=== PATIENT | male | born 1965 | race Caucasian/White ===

== ENCOUNTER → 2021-05-19 11:59 | Outpatient (BNVA) | payer SELFPAY | PROVIDERS: Visit Provider Nurse Practitioner Family | DX: J06.9 Acute upper respiratory infection, unspecified (principal); Z20.822 Contact with and (suspected) exposure to COVID-19 | CPT/HCPCS: 87635 ==

== ENCOUNTER 2023-01-10 20:48 | Emergency (ER) | payer OTHER, SELFPAY ==
[2023-01-10 20:50] VITALS: BP 178/123; PULSE 99; TEMP 36.9; O2SAT 98; BMI 24.3
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
[2023-01-10 21:29] VITALS: BP 185/125; PULSE 90; O2SAT 96
[2023-01-10 23:03] VITALS: PULSE 82; RESP 18; O2SAT 96
--- NOTE | 2023-01-14 10:40 | DCPLANNER ---
manager of training called patient due to no primary care physician - patient stated that he sees a physician at the [place] [facility] in [place].
== END 2023-01-10 22:48 | disposition home or self-care (01) ==
PROVIDERS: Emergency Provider Emergency Medicine
DX: S09.8XXA Other specified injuries of head, initial encounter (principal); I10 Essential (primary) hypertension; Y04.2XXA Assault by strike against or bumped into by another person, initial encounter
CPT/HCPCS: 70450; 70486; 72125; 72131; 73130; 99284

== ENCOUNTER 2023-01-11 15:38 | Emergency (ER) | payer OTHER, SELFPAY ==
[2023-01-11 16:21] VITALS: BP 167/109; PULSE 81; RESP 16; TEMP 36.8; O2SAT 97; BMI 24.3
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
--- NOTE | 2023-01-14 10:19 | DCPLANNER ---
manager personal called patient due to no primary care physician - patient stated that he sees a physician with [place] [facility] in [place].
== END 2023-01-11 16:55 | disposition home or self-care (01) ==
PROVIDERS: Emergency Provider Physician Assistant
DX: F07.81 Postconcussional syndrome (principal); I10 Essential (primary) hypertension
CPT/HCPCS: 99283

== ENCOUNTER 2023-01-20 16:54 | Emergency (ER) | payer OTHER, SELFPAY ==
[2023-01-20 17:03] VITALS: BP 158/98; PULSE 72; RESP 16; TEMP 36.7; O2SAT 98; BMI 24.3
--- NOTE | 2023-01-20 17:11 | ED_ITS ---
HPI - Headache General: Chief Complaint: Headache Stated Complaint: heachache/neck pain Time Seen by Provider: 01/20/23 17:09 History of Present Illness: 57-year-old male patient comes in today with neck discomfort and headache. Patient on the third of this month had a head injury was evaluated at that time in the emergency room with multiple images. Patient was noted to have some degenerative changes in his neck and lumbar spine. Imaging of the skull and brain were normal. Patient reports when he moves his neck today had some crepitus and some increased pain. Patient does not need anything for pain right now. Patient appears nontoxic. Patient appears in mild to no pain. Associated symptoms: Deny chest pain, fever(s), nausea, rash or vomiting Review of Systems Const: Denies: fever(s) ENMT: Denies: throat pain Card: Denies: chest pain Resp: Denies: dyspnea GI: Denies: nausea, vomiting, diarrhea or constipation : Denies: difficulty urinating Musc: Reports: neck pain Skin/Breast: Denies: rash Neuro: Reports: headache(s) [facility] ED PFSH: Medical History HTN (hypertension) with goal to be determined Physical Exam Const: COMMON NORMALS: alert HENMT: COMMON NORMALS: normocephalic and Normal external nose present HEAD & SCALP: normocephalic NOSE: Normal external nose present THROAT: posterior oropharynx normal Neck/C-Spine: COMMON NORMALS: full ROM CERVICAL SPINE: No Cervical spine tenderness and Yes Paracervical muscle tenderness Resp: COMMON NORMALS: normal respiratory effort and clear to auscultation bilaterally AUSCULTATION: clear to auscultation bilaterally Cardio: COMMON NORMALS: regular rate and regular rhythm RATE: regular rate RHYTHM: regular rhythm Back/Pelvis: COMMON NORMALS: thoracic and lumbar spine normal to inspection Extremity: COMMON NORMALS: normal to inspection Neuro: SENSORIUM/ORIENTATION: Yes alert Skin: COMMON NORMALS: turgor normal GENERAL SKIN EXAM: turgor normal Course Vital Signs: Vital signs: Vital Signs Temperature 98.1 F 01/20/23 17:03 Pulse Rate 72 01/20/23 17:03 Respiratory Rate 16 01/20/23 17:03 Blood Pressure 158/98 01/20/23 17:03 Pulse Oximetry 98 01/20/23 17:03 Oxygen Delivery Me thod Room Air 01/20/23 17:03 MDM - Headache Medical Decision Making 57-year-old male patient comes in today for concerns of headache status post a head injury. On exam no focal neural deficits are noted. Pupils are equal and reactive. Patient moves neck without difficulty. Respirations are even lungs are clear to auscultation. Differential diagnosis includes but not limited to cervical radiculopathy, muscle strain, postconcussion head syndrome. No signs of severe illness or injury is noted at this time. Review of the record noted full imaging done. CT of the head was unremarkable at that time. It was noted that patient did have some foraminal stenosis in C5-C6, and C6-C7 area of the cervical spine which may be contributing to patient's headache and neck pain. I recommended patient for follow-up with either neurology or orthopedic spine for further evaluation and treatment. Patient refused he wanted to follow-up with his [place] healthcare specialist. Discharge Plan Discharge Patient Disposition: Home Clinical Impression: Postconcussion syndrome Condition: Stable Prescriptions: No Action lisinopril-hydrochlorothiazide 10-12.5 mg tablet 1 tab PO DAILY budesonide-formoterol [Symbicort] 160-4.5 mcg/actuation HFA aerosol inhaler 2 puff inhalation BID Qty: 10.2 0RF Rx Instructions: 340B pseudoephedrine HCl 60 mg tablet 60 mg PO Q6H PRN (Reason: nasal congestion) Qty: 20 0RF Rx Instructions: 340 Naprosyn 500 mg tablet 500 mg PO BID PRN (Reason: pain) Qty: 20 0RF Discharge Orders: Discharge ED (Routine); Ordered 01/20/23 Ordered By: Wilner Stephens Discharge Diet: Usual diet Discharge Activity: Increase activity as tolerated Patient Instructions: Post Concussion Syndrome (ED) Activity Restrictions/Additional Instructions: Home and rest. Continue routine medical care. Use naproxen or ibuprofen to help with pain and inflammation. Drink plenty of water with medications. Follow-up with primary care as scheduled appointment on Wednesday. Return to the ER for uncontrolled pain, nausea vomiting, fever greater than 100.4. Coding Level of Care Code ED Surgical Appliance Fitter for Phyllis Dupont
== END 2023-01-20 17:26 | disposition home or self-care (01) ==
PROVIDERS: Emergency Provider Nurse Practitioner Family
DX: F07.81 Postconcussional syndrome (principal); I10 Essential (primary) hypertension
CPT/HCPCS: 99282

== ENCOUNTER 2023-04-06 08:43 | Emergency (ER) | payer OTHER, SELFPAY ==
[2023-04-06] VITALS (9 sets, daily range): BP systolic 169–188; BP diastolic 87–106; PULSE 65–78; RESP 16–20; TEMP 37.1; O2SAT 95–100; BMI 22.2
--- NOTE | 2023-04-06 08:51 | ECG_ITS ---
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 Measurements Intervals [place] Rate: 65 P: 86 DC: 187 QRS: 86 QRSD: 100 T: 84 QT: 408 QTc: 425 Interpretive Statements SINUS RHYTHM Normal EKG No previous ECG available for comparison Electronically Signed On 04-06-2023 16:54:59 FLOW FLOOR ATTENDANT by Keiko Thorpe M.D. [id number]
[2023-04-06] MEDS: ondansetron 2 mg/ML SDV 2 mL 4 MG IVP (10:02)
--- NOTE | 2023-04-06 10:02 | ED_ITS ---
HPI - Abdominal Pain 2 General: Chief Complaint: Abdominal Pain Stated Complaint: abd pains Time Seen by Provider: 04/06/23 08:44 Source: patient Mode of arrival: ambulatory History of Present Illness: 57-year-old male presents emergency room with sharp left flank pain rating into the groin just relates that it feels similar to what he had with kidney stones in the past. In the past she has required stenting and then did spontaneously passed a kidney stone. He denies any fevers sweats or chills. No dysuria urgency or frequency. MD elicited complaint: flank pain Pertinent past history: kidney stones Onset (ago): hour(s) (2) Pain Consistency: constant Location: L flank Severity: mild Quality: sharp Radiation: other (Left lower quadrant/left groin) Exacerbating factors: nothing Relieving factors: nothing Associated Symptoms: Denies anorexia, belching, bloating, change in bowel habits, change in stool character, chills, coffee ground emesis, constipation, GI cramping, diarrhea, dyspepsia, dysuria, excessive flatus, fever(s), heartburn, hematochezia, hematuria, hematemesis, fecal incontinence, loose stools, melena, nausea, poor appetite, syncope and vomiting Review of Systems 2 Const: Denies: fever(s) or chills Card: Denies: chest pain or syncope Resp: Denies: dyspnea GI: Denies: abdominal pain, nausea, vomiting, hematemesis, coffee ground emesis, heartburn, diarrhea, constipation, bloating, GI cramping, belching, excessive flatus, fecal incontinence, change in bowel habits, change in stool character, hematochezia or melena : Reports: flank pain; Denies: dysuria, urinary frequency, urinary urgency or hematuria Musc: Denies: neck pain or back pain Skin/Breast: Denies: rash PFSH ED 2 PFSH: Medical History HTN (hypertension) with goal to be determined Physical Exam 2 Const: GENERAL APPEARANCE: cooperative ORIENTATION/CONSCIOUSNESS: Yes awake, Yes oriented to person, Yes oriented to place and Yes oriented to time HENMT: COMMON NORMALS: normocephalic, atraumatic and hearing grossly normal bilaterally HEAD & SCALP: normocephalic and atraumatic Resp: COMMON NORMALS: normal respiratory effort, No retractions, No use of accessory muscles and clear to auscultation bilaterally AUSCULTATION: clear to auscultation bilaterally Cardio: COMMON NORMALS: regular rate, regular rhythm and No murmurs present (Cardio) RATE: regular rate RHYTHM: regular rhythm GI: COMMON NORMALS: Soft to palpation and No hepatosplenomegaly present A USCULTATION: Yes normoactive bowel sounds PALPATION: Yes Soft to palpation, No Tenderness to palpation present (GI), No Guarding due to palpation present (GI) and Yes No hepatosplenomegaly present : BLADDER/KIDNEY EXAM: Yes CVA tenderness Back/Pelvis: GENERAL BACK: Yes CVA tenderness CVA tenderness: left Extremity: COMMON NORMALS: normal to inspection, capillary refill normal, no clubbing, cyanosis or edema, no calf tenderness and no pedal edema Neuro: SENSORIUM/ORIENTATION: Yes oriented to person, Yes oriented to place and Yes oriented to time Skin: COMMON NORMALS: no rashes or lesions noted GENERAL SKIN EXAM: no rashes or lesions noted Course 2 Vital Signs: Vital signs: Vital Signs Temperature 98.7 F 04/06/23 09:10 Pulse Rate 67 04/06/23 13:04 Respiratory Rate 16 04/06/23 13:04 Blood Pressure 181/94 04/06/23 13:04 Pulse Oximetry 95 04/06/23 13:04 Oxygen Delivery Me thod Room Air 04/06/23 13:03 MDM - Abdominal Pain Medical Decision Making Nephrolithiasis reviewed with patient. Discharge home pain is controlled at this time. Discharge home on tamsulosin: Pain medications nausea medications. Referral to urology. Strain urine. Return to emergency room if pain is not controlled. Medical Records I reviewed the patient's medical records. Lab Data I reviewed the patient's lab results. 04/06/23 09:56 04/06/23 09:56 Labs/Radiology: Laboratory Results WBC 6.83 10^3/uL (3.29-11.43) 04/06/23 09:56 RBC 4.69 10^6/uL (3.85-5.65) 04/06/23 09:56 Hgb 15.80 g/dL (11.27-16.99) 04/06/23 09:56 Hct 46.3 % (37-53) 04/06/23 09:56 MCV 98.7 fl (82-101) 04/06/23 09:56 MCH 33.7 pg (27-33) H 04/06/23 09:56 MCHC 34.1 g/dL (30-55) 04/06/23 09:56 RDW 11.9 % (12.1-15.1) L 04/06/23 09:56 Plt Count 238 10^3/cmm (157-399) 04/06/23 09:56 MPV 9.1 fL (7.4-10.4) 04/06/23 09:56 Neut % (Auto) 72.2 % 04/06/23 09:56 Lymph % (Auto) 20.2 % 04/06/23 09:56 [place] % (Auto) 6.0 % 04/06/23 09:56 Eos % (Auto) 0.7 % 04/06/23 09:56 Baso % (Auto) 0.6 % 04/06/23 09:56 Neut # (Auto) 4.93 10^3/uL (1.8-7.7) 04/06/23 09:56 Lymph # (Auto) 1.4 10^3/uL (0.8-4.8) 04/06/23 09:56 [place] # (Auto) 0.4 10^3/uL (0.2-0.9) 04/06/23 09:56 Eos # (Auto) 0.1 10^3/uL (0.0-0.8) 04/06/23 09:56 Baso # (Auto) 0.0 10^3/uL (0.0-0.1) 04/06/23 09:56 Nucleated RBC % (auto) 0 % 04/06/23 09:56 Nucleated RBCs # 0.0 /100WBC 04/06/23 09:56 Sodium 141 mmol/L (136-145) 04/06/23 09:56 Potassium 4.1 mmol/L (3.5-5.1) 04/06/23 09:56 Chloride 106 mmol/L (98-107) 04/06/23 09:56 Carbon Dioxide 22 mmol/L (22-29) 04/06/23 09:56 Anion Gap 17.1 (5-19) 04/06/23 09:56 BUN 15 mg/dL (6-20) 04/06/23 09:56 Creatinine 1.0 mg/dL (0.7-1.2) 04/06/23 09:56 GFR Calculation 76.7 mL/min (90-130) L 04/06/23 09:56 Glucose 162 mg/dL (65-115) H 04/06/23 09:56 Calculated Osmolality 296 mOsm/kg (285-295) H 04/06/23 09:56 Calcium 9.3 mg/dL (8.5-10.5) 04/06/23 09:56 Total Bilirubin 0.7 mg/dL (0.15-1.2) 04/06/23 09:56 AST 22 U/L (0-40) 04/06/23 09:56 ALT 23 U/L (0-41) 04/06/23 09:56 Alkaline Phosphatase 78 U/L (40-130) 04/06/23 09:56 Total Protein 6.7 g/dL (6.6-8.7) 04/06/23 09:56 Albumin 4.3 g/dL (3.5-5.2) 04/06/23 09:56 Globulin 2.4 g/dL (1.3-4.6) 04/06/23 09:56 Lipase 26 U/L (13-60) 04/06/23 09:56 Urine Color Yellow (Yellow) 04/06/23 11:42 Urine Appearance Clear (CLEAR) 04/06/23 11:42 Urine pH 8 (5-7) H 04/06/23 11:42 Ur Specific [place] 1.015 (1.005-1.030) 04/06/23 11:42 Urine Protein Neg (Negative) 04/06/23 11:42 Urine Glucose (UA) Norm (Normal) 04/06/23 11:42 Urine Ketones 1+ (Negative) H 04/06/23 11:42 Urine Blood 2+ (Negative) H 04/06/23 11:42 Urine Nitrate Negative (Negative) 04/06/23 11:42 Urine Bilirubin Neg (Negative) 04/06/23 11:42 Prot Sulfosalicylic Acd Negative (Negative) 04/06/23 11:42 Urine Urobilinogen Norm mg/dL (Negative) 04/06/23 11:42 Ur Leukocyte Esterase Negative (Negative) 04/06/23 11:42 Urine RBC 0-4 /hpf (0-2) H 04/06/23 11:42 Urine WBC 0-4 /hpf (0-5) H 04/06/23 11:42 Ur Squamous Epith Cells 0-4 /hpf (0-5) H 04/06/23 11:42 Amorphous Sediment Not Reportable 04/06/23 11:42 Urine Bacteria Trace /hpf (NONE) 04/06/23 11:42 Urine Mucus 3+ /hpf 04/06/23 11:42 All radiology interpretation(s) finalized by discharge Discharge Plan Discharge Patient Disposition: Home Clinical Impression: Calculus of kidney Condition: Stable Prescriptions: New hydrocodone-acetaminophen 5-325 mg tablet 1 tab PO Q6H PRN (Reason: pain) Qty: 10 0RF promethazine 25 mg tablet 25 mg PO Q6H PRN (Reason: nausea and vomiting) Qty: 20 0RF No Action multivitamin Tablet 1 tab PO DAILY Super Beets Powder See Rx Instructions .ROUTE .COMPLEX Rx Instructions: one scoop daily Discharge Orders: Discharge ED (Routine); Ordered 04/06/23 Ordered By: Gil Sinclair Patient Instructions: Kidney Stones (ED), How to Strain Your Urine (ED), Opioid Safety, Pain Management Activity Restrictions/Additional Instructions: Thank you for choosing [facility] for your healthcare needs today. Please realize this is an emergency room and that we are providing you with a medical screening exam and this may not be complete and all inclusive of all the testing and or work up that you may need to determine your ailment or severity of your illness. It is very important that you follow up as instructed or that you return to the Emergency Department should you have concerns or if your condition changes or worsens in any way. You are seen today for kidney stone. On the CT it appears you have passed kidney stone into the bladder. There is still signs that it was obstructing prior. Strain urine to catch stone. Case management make arrangements for her to follow-up with urology. Coding Level of Care Code ED Sales Office Administrator for Phyllis Dupont
[2023-04-06] MEDS: sodium chloride 0.9% 1,000 ML 999 ML IV ×2 (10:03→11:38)
--- NOTE | 2023-04-06 10:03 | CT_ITS ---
WS: [id number] CT ABDOMEN PELVIS TECHNIQUE: Noncontrast CT of the abdomen and pelvis with coronal and sagittal reformatted images. CLINICAL INFORMATION: flank pain COMPARISON: 2013 DLP: 372.[address] scans at [facility] use at least one of these dose optimization techniques: automated e xposure control; mA and/or kV adjustment per patient size (includes targeted exams where dose is matc hed to clinical indication); or iterative reconstruction. FINDINGS: Moderate LEFT hydronephrosis with pelvicaliectasis and ureterectasis. Inflammatory stranding and dipti a about the LEFT kidney. Adrenal glands are normal. 4.5 mm calculus within the bladder at the UVJ kateryna fice. This appears passed or nearly passed. No obstructing RIGHT renal or ureteral calculi. Mild bladder wall thickening. Slight bibasilar atelec tasis. Small hazy opacity RIGHT lower lobe measuring 4.3 mm likely inflammatory. Noncontrast liver is normal. Small esophageal hiatal hernia. Normal noncontrast spleen. Normal gallbladder. Adrenal gland s are normal. Normal caliber abdominal aorta. Few sigmoid diverticuli. No evidence of acute diverticulitis. No evidence of high-grade small or larg e bowel obstruction. IMPRESSION: 1. 4.5 mm calculus within the bladder at the UVJ orifice. This appears passed or nearly passed. 2. Moderate LEFT hydronephrosis with ureterectasis and inflammatory stranding about the LEFT kidney. 3. No other acute findings. Notified Gli Sinclair DO at 04/06/2023 12:17 PM.
[2023-04-06 10:05] LABS: Basophils % 0.6 %; Eosinophils # 0.1 10^3/uL (0.0-0.8); Eosinophils % 0.7 %; Hematocrit 46.3 % (37-53); Lymphocytes # 1.4 10^3/uL (0.8-4.8); Lymphocytes % 20.2 %; Mean Corpuscular HGB Conc 34.1 g/dL (30-55); Mean Corpuscular Hemoglobin 33.7 pg (27-33); Mean Corpuscular Volume 98.7 fl (82-101); Mean Platelet Volume 9.1 fL (7.4-10.4); Monocytes # 0.4 10^3/uL (0.2-0.9); Neutrophils # 4.93 10^3/uL (1.8-7.7); Neutrophils % 72.2 %; Nucleated Red Blood Cells % 0 %; Platelet Count 238 10^3/cmm (157-399); Red Blood Count 4.69 10^6/uL (3.85-5.65); Red Cell Distribution Width 11.9 % (12.1-15.1); White Blood Count 6.83 10^3/uL (3.29-11.43)
[2023-04-06 10:19] LABS: Alanine Aminotransferase 23 U/L (0-41); Albumin Level 4.3 g/dL (3.5-5.2); Alkaline Phosphatase 78 U/L (40-130); Anion Gap 17.1 (5-19); Aspartate Amino Transferase 22 U/L (0-40); Blood Urea Nitrogen 15 mg/dL (6-20); Calcium 9.3 mg/dL (8.5-10.5); Carbon Dioxide 22 mmol/L (22-29); Chloride 106 mmol/L (98-107); Globulin 2.4 g/dL (1.3-4.6); Glomerular Filtration Rate 76.7 mL/min (90-130); Glucose 162 mg/dL (65-115); Lipase 26 U/L (13-60); Osmolality Calculated 296 mOsm/kg (285-295); Potassium 4.1 mmol/L (3.5-5.1); Sodium 141 mmol/L (136-145); Total Bilirubin 0.7 mg/dL (0.15-1.2); Total Protein 6.7 g/dL (6.6-8.7)
[2023-04-06] MEDS: morphine 4 mg/mL SDV 1 mL IVP ×2 (10:23→11:38)
--- NOTE | 2023-04-06 11:53 | PC.PHAR ---
pt states he takes no prescription medications-pt states he is suppose to be on a blood pressure medication and a cholesterol medication pt states he is unsure of the names but states he doesnt take them-pt states [facility] names and mg -pt states he is only taking the 2 medications entered
[2023-04-06] MEDS: promethazine 25 mg/mL SDV 1 mL IM (12:11)
[2023-04-06 12:28] LABS: Blood Urine 2+ (Negative); Glucose Urine UA Norm (Normal); Ketones Urine 1+ (Negative); Protein Urine Neg (Negative); Specific Gravity, Urine 1.015 (1.005-1.030); Urine Appearance Clear (CLEAR); Urine Color Yellow (Yellow); pH Urine 8 (5-7)
[2023-04-06 12:29] LABS: Add Urine Microscopic? YES; Bilirubin Urine Neg (Negative); Leukocyte Esterase Urine Negative (Negative); Nitrate Urine Negative (Negative); Sulfosalicylic Acid Urine Negative (Negative); Urobilinogen Urine Norm (Negative)
[2023-04-06 12:32] LABS: Add Urine Culture? No; Bacteria Urine TRACE /hpf; Mucus Urine 3+ /hpf; RBC Urine 0-4 /hpf (0-2); Squamous Epithelial Cell Urine 0-4 /hpf (0-5); WBC Urine 0-4 /hpf (0-5)
== END 2023-04-06 13:05 | disposition home or self-care (01) ==
PROVIDERS: Emergency Provider Family Medicine
DX: N20.0 Calculus of kidney (principal); I10 Essential (primary) hypertension
CPT/HCPCS: 36415; 74176; 80053; 81001; 83690; 85025; 93005; 96361; 96372; 96374; 96375; 96376; 99285; J2270; J2405; J2550; J7030

== ENCOUNTER 2025-03-28 09:33 | Emergency (ER) | payer OTHER, SELFPAY ==
[2025-03-28 09:39] VITALS: BP 155/88; PULSE 71; RESP 18; TEMP 36.6; O2SAT 100; BMI 22.9
--- NOTE | 2025-03-28 10:11 | ED_ITS ---
HPI - Wound/Laceration General: Chief Complaint: Wound/Laceration Stated Complaint: Right index finger Lac Time Seen by Provider: 03/28/25 10:01 History of Present Illness: 59-year-old man who presents emergency r oom with a finger laceration. It is a small superficial laceration on the tip of his finger. He felt like he might need to have it cleaned. Neurovascularly intact. Bleeding controlled. Related Data Home Medications ?Medication ?Instructions ?Recorded ?Confirmed Super Beets Powder See Rx Instructions .Route . COMPLEX 04/06/23 04/06/23 multivitamin 1 tab PO DAILY 04/06/2303/11 Previous Rx's ?Medication ?Instructions ?Recorded hydrocodone 5 mg-acetaminophen 325 1 tab PO Q6H PRN pa in #10 tabs 04/06/23 mg tablet promethazine 25 mg tablet 25 mg PO Q6H PRN nausea and 04/06/23 vomiting #20 tabs Allergies Allergy/AdvReac Type Severity Reaction Status Date / Time No Known Allergies Allergy Verified 03/09/23 08:08 Review of Systems Narrative: Constitutional symptoms: Negative except as documented in HPI. Skin symptoms: Negative except as documented in HPI. Eye symptoms: Negative except as documented in HPI. ENMT symptoms: Negative except as documented in HPI. Respiratory symptoms: Negative except as documented in HPI. Cardiovascular symptoms: Negative except as documented in HPI. Gastrointestinal symptoms: Negative except as documented in HPI. Genitourinary symptoms: Negative except as documented in HPI. Musculoskeletal symptoms: Negative except as documented in HPI. Neurologic symptoms: Negative except as documented in HPI. Psychiatric symptoms: Negative except as documented in HPI. Endocrine symptoms: Negative except as documented in HPI. [facility] ED PFSH: Medical History (Updated 03/28/25 @ 10:13 by Marychuy Willett MD) HTN (hypertension) with goal to be determined Physical Exam Narrative: EXAM NARRATIVE: General: Alert, no acute distress. Skin: warm and dry: Small flap of skin on the tip of the right index finger. Head: Normocephalic Neck: Trachea midline Eye: Extraocular movements are intact. Ears, nose, mouth and throat: Oral mucosa moist Respiratory: Respirations are non-labored Musculoskeletal: Normal ROM Gastrointestinal: Abdomen does not appear distended Neurological: Alert and oriented, No focal neurological deficit observed. Psychiatric: Cooperative, appropriate mood & affect. Course Vital Signs: Vital signs: Vital Signs Temperature 97.8 F 03/28/25 09:39 Pulse Rate 71 03/28/25 09:39 Respiratory Rate 18 03/28/25 09:39 Blood Pressure 155/88 03/28/25 09:39 Pulse Oximetry 100 03/28/25 09:39 Oxygen Delivery Me thod Room Air 03/28/25 09:39 MDM - Wound/Laceration Medical Decision Making Medical decision making Patient's reason for coming to the emergency room: Finger laceration Social determinants: Employed I reviewed the patient's medical record. Seen for kidney stones in 2022. I reviewed the patient's current home meds No chronic medications Alternate historians: None Differential diagnosis: including but not limited to and based on the above HPI, review of systems and physical exam: This appears to be a fairly simple minor laceration that does not require suturing. He is up-to-date on his tetanus. Assessment and plan: Finger laceration - Discharged home - Discussed plan with patient. Answered any questions. - Evaluation and treatment of this problem were appropriate in the emergency setting. No radiology studies performed this visit Discharge Plan Discharge Patient Disposition: Home Clinical Impression: Avulsion of skin Condition: Stable Prescriptions: No Action multivitamin Tablet 1 tab PO DAILY Super Beets Powder See Rx Instructions .ROUTE .COMPLEX Rx Instructions: one scoop daily hydrocodone-acetaminophen 5-325 mg tablet 1 tab PO Q6H PRN (Reason: pain) Qty: 10 0RF promethazine 25 mg tablet 25 mg PO Q6H PRN (Reason: nausea and vomiting) Qty: 20 0RF Discharge Orders: Discharge ED (Routine); Ordered 03/28/25 Ordered By: Marychuy Willett Discharge Diet: Usual diet Discharge Activity: Increase activity as tolerated Patient Instructions: Opioid Safety, Pain Management, Patient Portal & Sherrell Instructions Activity Restrictions/Additional Instructions: Thank you for choosing [facility] for your healthcare needs today. You have been screened and evaluated and felt safe for discharge. Health conditions do change or evolve sometimes and as such it is important that you follow up with your Primary Doctor to be re checked, 3-5 days is a general good time frame for follow up. You are always welcome to return to the ED for re assessment if your symptoms are worsening or you have new concerns Print Language: Icelandic Coding Level of Care Code ED Chrome Tanner for Phyllis Dupont
--- OUTSIDE RECORDS SUMMARY | 2025-03-28 12:12 | XMS_ITS | Clinical Summary ---
Author Organization [facility] Address [address] [place] [address] Phone Care Team Providers Care Computer Engineering Technologist Name Role Phone Unavailable Primary Care Provider Unavailabl e Allergies No known active allergies Medications LISINOPRIL-HYDRO CHLOROTHIAZIDE ORAL Take by mouth. Active NAPROXEN ORAL Take by mouth. Active CETIRIZINE HCL (ZYRTEC ORAL) Take by mouth. Active multivitamin (DAILY-CAMILA) tablet Take 1 Tablet by mouth daily. Active citalopram (CeleXA) 10 mg tablet Take 10 mg by mouth daily digital media representative. Active methylPREDNISolo ne (MEDROL, BRAD,) 4 mg Tablets, Dose Pack Take by mouth as directed. 21 Tablet 03/28/2018 11:55 AM INSURANCE EXAMINER 03/28/2018 Active Active Problems No known active problems Immunizations Immunization Administration Dates Next Due (SPIKEVAX) (12 YRS UP PRIMAR Y SERIES) COVID-19 VACCINE - MRNA-1273(PF) 100 MCG/0.5 ML IM SUSP 08/18/2020 (TDVAX)(7 YRS UP) TETANUS AN D DIPHTHERIA TOXOIDS, ADSORBED (2 LF OF TETANUS TOXOID AND 2 LF OF DIPHTHERIA TOXOID), 0.5ML (PF), IM 12/08/2002 Social History Tobacco Use Types Packs/Day Years Used Date Smoking Tobacco: Every Day Cigarettes 1 40 Smokeless Tobacco: Former Chew Comments:Quit smoking cigare ttes in March 2017, Vaping Alcohol Use Standard Drinks/Week Comments Yes 0 (1 standard drink = 0.6 oz pur e alcohol) 2 drinks daily Sex and Gender Information Value Date Recorded Sex Assigned at Not on file Legal Sex Male 4:46 AM INSURANCE EXAMINER Gender Identity Not on file Sexual Orientation Not on file Last Filed Vital Signs Vital Sign Reading Time Taken Comments Blood Pressure 140/83 05/09/2018 11:05 AM INSURANCE EXAMINER Pulse 63 05/09/2018 11:05 AM INSURANCE EXAMINER Temperature 36.1 C (96.9 F) 01/12/2018 2:45 PM CDT Respiratory Rate 18 01/12/2018 2:45 PM CDT Oxygen Saturation 96% 01/12/2018 2:45 PM CDT Inhaled Oxygen Concentration - - Weight 79.8 kg (176 lb) 05/09/2018 11:05 AM INSURANCE EXAMINER Height 180.3 cm (5' 11 ) 05/09/2018 11:05 AM INSURANCE EXAMINER Body Mass Index 24.55 05/09/2018 11:05 AM INSURANCE EXAMINER Plan of Treatment Health Maintenance Due Date Last Done Comments DTAP/TDAP/TD VACCINES (1 - Tdap) 12/09/2002 12/09/19 03 COLORECTAL SCREENING 2009 Colorectal Cancer Screening 2009 FIT-DNA Q 3 years 2009 FIT/FOBT Q 1 year 2009 Flex Sig/CT Colonography Q 5 years 2009 ZOSTER VACCINE (1 of 2) 2014 INFLUENZA VACCINE (#1) 2024 COVID-19 Vaccine (2 - 2024-2 6 season) 2025 08/18/2020 RSV VACCINE (60+ or ) (1 - 1-dose 75+ series) 11/23/2039 HEPATITIS B VACCINES Aged Out No long er eligible based on patient's age to complete this topic Medical Devices Implanted Type Area Automatic Vulcanizing Lead Operator Device Identifier Shelf Expiration Date Model / Serial / Lot Slade Speedbridge W/ Biocmpst Swivelck [id number] - [id number] Implanted:Qty: 1 on 01/12/2018 by Michael Heredia MD at [facility] Slade Right: Shoulder [employer] 03/09/2019 [id number] / / [id number] Insurance RX [facility] [employer]
--- OUTSIDE RECORDS SUMMARY | 2025-03-28 12:12 | XMS_ITS | Encounter Summary ---
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
--- OUTSIDE RECORDS SUMMARY | 2025-03-28 12:12 | XMS_ITS | Encounter Summary ---
Author Organization [facility] Address [address] [place] [address] Care Team Providers Care Airport Operations Coordinator Name Role Phone Unavailable Primary Care Provider Unavailabl e Encounter Details Date Type Department Care Team (Latest Contact Info) Description 12/08/2002 Outpatient Historical HIS [facility] Lee Candelaria MD [address] [place] [address] OPEN WOUND OF FOOT (Primary Dx); DERMATOPHYTOSIS OF NAIL; TINNITUS NOS; VACCINE FOR TETANUS + DIPHTHERIA Social History Tobacco Use Types Packs/Day Years Used Date Smoking Tobacco: Never Assessed Sex and Gender Information Value Date Recorded Sex Assigned at Not on file 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
--- OUTSIDE RECORDS SUMMARY | 2025-03-28 12:12 | XMS_ITS | Encounter Summary ---
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
--- OUTSIDE RECORDS SUMMARY | 2025-03-28 12:12 | XMS_ITS | Encounter Summary ---
Author Organization [facility] Address [address] [place] [address] Care Team Providers Care Scene Shifter Name Role Phone Unavailable Primary Care Provider Unavailabl e Encounter Details Date Type Department Care Team (Latest Contact Info) Description 03/31/2002 Outpatient Historical HIS [facility] Lee Candelaria MD [address] [place] [address] ULNAR NERVE LESION (Primary Dx) Social History Tobacco Use Types Packs/Day Years Used Date Smoking Tobacco: Never Assessed Sex and Gender Information Value Date Recorded Sex Assigned at Not on file 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
--- OUTSIDE RECORDS SUMMARY | 2025-03-28 12:12 | XMS_ITS | Clinical Summary ---
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 12/31/2017 Active LISINOPRIL-HYDRO CHLOROTHIAZIDE ORAL Take by mouth. 06/09/2016 Active multivitamin (DAILY-CAMILA) tablet Take 1 Tablet by mouth daily. 06/09/2016 Active NAPROXEN ORAL Take by mouth. 06/09/2016 Active cetirizine HCl (ZYRTEC ORAL) Take by mouth. 06/09/2016 Active Immunizations Immunization Administration Dates Next Due (SPIKEVAX) (12 YRS UP PRIMAR Y SERIES) COVID-19 VACCINE - MRNA-1273(PF) 100 MCG/0.5 ML IM SUSP 08/18/2020 (TDVAX)(7 YRS UP) TETANUS AN D DIPHTHERIA TOXOIDS, ADSORBED (2 LF OF TETANUS TOXOID AND 2 LF OF DIPHTHERIA TOXOID), 0.5ML (PF), IM 12/08/2002 Social History Tobacco Use Types Packs/Day Years Used Date Smoking Tobacco: Every Day Cigarettes Smokeless Tobacco: Former Comments:Quit smoking: Quit smoking cigarettes in March 2017, Vaping Alcohol Use Standard Drinks/Week Comments Yes 0 (1 standard drink = 0.6 oz pur e alcohol) Sex and Gender Information Value Date Recorded Sex Assigned at Not on file 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 Gender Identity Not on file Sexual Orientation Not on file Last Filed Vital Signs Vital Sign Reading Time Taken Comments Blood Pressure 140/83 05/09/2018 11:05 AM EXTERIOR 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 Pulse 63 05/09/2018 11:05 AM EXTERIOR 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 Temperature 36.1 C (96.9 F) 01/12/2018 2:45 PM CDT Respiratory Rate 18 01/12/2018 2:45 PM CDT Oxygen Saturation - - Inhaled Oxygen Concentration - - Weight 79.8 kg (176 lb) 05/09/2018 11:05 AM EXTERIOR 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 Height 180.3 cm (5' 11 ) 05/09/2018 11:05 AM EXTERIOR 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 Body Mass Index 24.55 05/09/2018 11:05 AM 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 Plan of Treatment Health Maintenance Due Date [...] this topic Medical Devices Implanted Type Area Senior Developer Device Identifier Shelf Expiration Date Model / Serial / Lot [place] Speedbrayan W/ Biocmpst Lisajor[place] [id number] - [id number] Implanted:Qty: 1 on 01/12/2018 by Michael Heredai MD [place] Right: Shoulder [employer] 03/09/2019 [id number] / / [id number] Insurance * Guarantor: NATALY JOHNSON Account Type Relation to Patient Date of Phone Billing Address Personal/Family [address] [place] [address] [facility] [employer] * Guarantor: [facility] D (C) Account Type Relation to Patient Date of Phone Billing Address Corporate Other DEFAULT ADDRESS [address] [employer]
--- OUTSIDE RECORDS SUMMARY | 2025-03-28 12:12 | XMS_ITS | Encounter Summary ---
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
--- OUTSIDE RECORDS SUMMARY | 2025-03-28 12:12 | XMS_ITS | Encounter Summary ---
Author Organization [facility] Address [address] [place] [address] Care Team Providers Care Club Concierge Name Role Phone Unavailable Primary Care Provider Unavailabl e Encounter Details Date Type Department Care Team (Late st Contact Info) Description 08/12/2017 Ancillary Orders [facility] Orthopedics - Orthopedic [facility] [address] [place] [id number] [facility], External Provider [address] [place] [address] Pain Social History Tobacco Use Types Packs/Day Years Used Date Smoking Tobacco: Every Day Cigarettes 1 40 Alcohol Use Standard Drinks/Week Comments Yes 14 (1 standard drink = 0.6 oz pu re alcohol) Sex and Gender Information Value Date Recorded Sex Assigned at Not on file 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 us External Provider [facility] MR ORDERABLES Final Resu lt * XR PRIOR STUDY (07/19/2017 8:35 AM CDT) Narrative 08/12/2017 11:29 AM CDT This exam was auto finalized to allow images to be scanned to PACS. us External Provider [facility] DIAGNOSTIC IMAGING ORDERAB LES Final Result documented in this encounter Visit Diagnoses Diagnosis Pain Generalized pain Pain Generalized pain Pain Generalized pain documented in this encounter
== END 2025-03-28 10:17 | disposition home or self-care (01) ==
PROVIDERS: Emergency Provider Emergency Medicine
DX: S61.210A Laceration without foreign body of right index finger without damage to nail, initial encounter (principal); I10 Essential (primary) hypertension; X58.XXXA Exposure to other specified factors, initial encounter
CPT/HCPCS: 99282